=== PATIENT | female | born 1965 | race Caucasian/White ===

== ENCOUNTER 2025-01-06 09:19 | Day surgery (SDC) | payer MEDICARE ==
[~2025-01-06] VITALS: Ht 167.6 cm; Wt 93.3 kg
[~2025-01-06 09:19] MED LIST: ATOMOXETINE HC100 MG PO; ATOR10 PO; BACLOFEN5 M1 PO; DIVIGEL TOP; DULO60 PO; FURO20 PO; GABA100 PO; Inderal 20 mg T20 MG PO; Lamictal200 MG PO; Norco 5-325 Ta1 EACH PO; OXYC10TA19 PO; Oxybutynin Chlor5 M1 PO; PANT40 PO; POTCHL20ER PO; ROPINIROLE HC0.25 M2 PO; TERB250 PO; TRAM50 PO; Zofran Odt4 MG SL
[2025-01-06] MEDS ORDERED: MELO7.5 (09:43)
[2025-01-06 11:44] VITALS: BP 133/67
== END 2025-01-06 12:03 | disposition home or self-care (01) ==
LOC: ORSCSDS 09:19
PROVIDERS: Internal Medicine Gastroenterology
PROC: 0DBH8ZX Excision of Cecum, Via Natural or Artificial Opening Endoscopic, Diagnostic (ICD-10-PCS; principal; 2025-01-06 10:45)
PROC: 0DBK8ZX Excision of Ascending Colon, Via Natural or Artificial Opening Endoscopic, Diagnostic (ICD-10-PCS; principal; 2025-01-06 10:45)
PROC: 0DBM8ZX Excision of Descending Colon, Via Natural or Artificial Opening Endoscopic, Diagnostic (ICD-10-PCS; principal; 2025-01-06 10:45)
PROC: 0DB98ZX Excision of Duodenum, Via Natural or Artificial Opening Endoscopic, Diagnostic (ICD-10-PCS; principal; 2025-01-06 10:45)
DX: R13.10 Dysphagia, unspecified (principal); R10.84 Generalized abdominal pain; D12.0 Benign neoplasm of cecum; D12.2 Benign neoplasm of ascending colon; D12.4 Benign neoplasm of descending colon; I10 Essential (primary) hypertension; Z86.73 Personal history of transient ischemic attack (TIA), and cerebral infarction without residual deficits; Z87.891 Personal history of nicotine dependence; Z79.899 Other long term (current) drug therapy
CPT/HCPCS: 88305; J2704; J7120